=== PATIENT | female | born 1970 | race Caucasian/White ===

== ENCOUNTER → 2022-05-11 | Outpatient (CLI) | payer OTHER | LOC: MC.RAD 07:49 | DX: Z12.31 Encounter for screening mammogram for malignant neoplasm of breast (principal) ==

== ENCOUNTER → 2023-07-18 | Outpatient (CLI) | payer BC ==
[~2023-07-18] MED LIST: LIPITOR20 MG PO; PRINZIDE 12.5 M1 TA1 PO; SYNTHROID0.05 MG/TA PO; ZYRTEC 10MG10 MG PO
== END ==
LOC: MC.RAD 08:56
DX: Z12.31 Encounter for screening mammogram for malignant neoplasm of breast (principal)